=== PATIENT | female | born 1945 | race Caucasian/White ===

== ENCOUNTER 2017-08-18 18:18 | Inpatient (IN) | payer MEDICAID ==
[~2017-08-18] VITALS: Ht 154.9 cm; Wt 70.3 kg
[2017-08-18] MEDS ORDERED: ONDANSETRON HCL 4MG/2ML INJ IV STA (21:39)
[2017-08-18] MEDS ORDERED: MORPHINE SULFATE 4 MG/ML CPJ (NOT FOR IM USE) IV STA (21:39)
[2017-08-18 22:06] LABS: HEMATOCRIT. 37.8 % (36.0-48.0); HEMOGLOBIN. 12.4 g/dL (12.0-16.0); MEAN CORPUSCULAR HEMOGLOBIN 29.1 pg (28.0-32.0); MEAN CORPUSCULAR VOLUME 88.9 fL (81.0-99.0); MEAN PLATELET VOLUME 10.5 fl (7.4-10.4); PLATELET 315 x1000/uL (130-400); RED BLOOD CELL COUNT 4.25 mill/uL (4.2-5.4); RED CELL DISTRIBUTION WIDTH 15.1 % (11.6-14.6)
[2017-08-18 22:11] LABS: INR 1.1
[2017-08-18 22:16] LABS: CHLORIDE 103 mEq/L (98-107)
[2017-08-18 22:17] LABS: CLARITY URINE CLOUDY (CLEAR); COLOR URINE YELLOW (YELLOW); KETONES URINE TRACE (NEGATIVE); LEUKOCYTE ESTERASE URINE 2+ (NEGATIVE); NITRITE URINE POSITIVE (NEGATIVE); OCCULT BLOOD URINE NEGATIVE (NEGATIVE); PH URINE 5.5 (4.5-8.0); PROTEIN URINE NEGATIVE (NEGATIVE); SPECIFIC GRAVITY URINE 1.024 (1.005-1.030)
[2017-08-18 22:37] LABS: PLATELET ESTIMATE NORMAL
[2017-08-18] MEDS ORDERED: CEFTRIAXONE 1 G PREMIX 50 ML IV ONE (22:45)
[2017-08-18] MEDS ORDERED: ASPIRIN 325MG TABLET PO ONE (23:00)
[2017-08-19] MEDS ORDERED: ACETAMINOPHEN 325MG TABLET PO ONE (00:45)
[2017-08-19] MEDS ORDERED: IPRATROPIUM/ALBUTEROL 0.5-3(2.5)MG/3ML NEB INH PRN (01:00)
[2017-08-19] MEDS ORDERED: ONDANSETRON HCL 4MG/2ML INJ IV PRN (01:00)
[2017-08-19] MEDS ORDERED: DOCUSATE SODIUM 100MG CAPSULE PO PRN (01:00)
[2017-08-19] MEDS ORDERED: ACETAMINOPHEN 325MG TABLET PO PRN (01:00)
[2017-08-19] MEDS ORDERED: MAGNESIUM/ALUMINUM HYDROXIDE/SIMETHICONE 30ML UDC PO PRN (01:00)
[2017-08-19] MEDS ORDERED: CLONIDINE 0.1MG TABLET PO PRN (01:00)
[2017-08-19 01:28] LABS: CHLORIDE 104 mEq/L (98-107)
[2017-08-19] MEDS: LEVOFLOXACIN 500MG PREMIX 100 ML IV SCH (01:40)
[2017-08-19 05:49] LABS: HEMATOCRIT. 34.6 % (36.0-48.0); HEMOGLOBIN. 11.3 g/dL (12.0-16.0); MEAN CORPUSCULAR VOLUME 88.7 fL (81.0-99.0); MEAN PLATELET VOLUME 10.4 fl (7.4-10.4); PLATELET 281 x1000/uL (130-400); RED CELL DISTRIBUTION WIDTH 15.2 % (11.6-14.6)
[2017-08-19 06:06] LABS: CREATINE KINASE MB FRACTION 0.8 ng/mL (0.5-3.6)
[2017-08-19 06:11] LABS: CREATINE KINASE 11 IU/L (26-192); HDL CHOLESTEROL 59 mg/dL (40-59); LDL CHOLESTEROL 69 mg/dL (5-100)
[2017-08-19 06:31] LABS: PLATELET ESTIMATE NORMAL
[2017-08-19 08:00] VITALS: BP 118/79
[2017-08-19 09:07] VITALS: BP 118/79
[2017-08-19 10:41] LABS: *AMPHETAMINES SCREEN URINE PRESUMTIVE POSITIVE (NEGATIVE); *BARBITURATES SCREEN URINE NEGATIVE (NEGATIVE); *BENZODIAZEPINES SCREEN URINE NEGATIVE (NEGATIVE); *COCAINE SCREEN URINE NEGATIVE (NEGATIVE); CANNABINOID URINE SCREEN NEGATIVE (NEGATIVE); METHADONE URINE SCREEN NEGATIVE (NEGATIVE); OPIATES URINE SCREEN NEGATIVE (NEGATIVE); PHENCYCLIDINE URINE SCREEN NEGATIVE (NEGATIVE)
[2017-08-19] MEDS: ASPIRIN 81MG EC TABLET PO SCH (10:48)
[2017-08-19] MEDS: ENOXAPARIN 40MG/0.4ML SYR SUBCUT SCH (10:49)
[2017-08-19 12:00] VITALS: BP 111/53
[2017-08-19] MEDS: HYDROCODONE/ACETAMINOPHEN 5/325MG TABLET PO PRN ×2 (13:29→21:01)
[2017-08-19 15:39] LABS: CREATINE KINASE 11 IU/L (26-192)
[2017-08-19 15:40] LABS: CREATINE KINASE MB FRACTION 0.6 ng/mL (0.5-3.6)
[2017-08-19 16:00] VITALS: BP 107/51
[2017-08-19 20:00] VITALS: BP 101/54
[2017-08-19] MEDS: MORPHINE SULFATE 2 MG/ML CPJ (NOT FOR IM USE) IV PRN (21:50)
[2017-08-19] MEDS: CEFTRIAXONE 1 G PREMIX 50 ML IV SCH (23:21)
[2017-08-20] VITALS: BP 92/50
[2017-08-20] MEDS: LEVOFLOXACIN 500MG PREMIX 100 ML IV SCH (00:25)
[2017-08-20 04:00] VITALS: BP 100/52
[2017-08-20 08:00] VITALS: BP 96/44
[2017-08-20] MEDS: ASPIRIN 81MG EC TABLET PO SCH (08:28)
[2017-08-20] MEDS: ENOXAPARIN 40MG/0.4ML SYR SUBCUT SCH (08:28)
[2017-08-20 12:00] VITALS: BP 93/43
[2017-08-20] MEDS: GUAIFENESIN 200MG/10ML SUGAR FREE UDC PO PRN (14:48)
[2017-08-20 16:00] VITALS: BP 110/55
[2017-08-20 20:00] VITALS: BP 104/53
[2017-08-20] MEDS: CEFTRIAXONE 1 G PREMIX 50 ML IV SCH (22:55)
[2017-08-20] MEDS: MORPHINE SULFATE 2 MG/ML CPJ (NOT FOR IM USE) IV PRN (22:59)
[2017-08-21] VITALS (7 sets, daily range): BP systolic 95–117; BP diastolic 48–58
[2017-08-21] MEDS: GUAIFENESIN 200MG/10ML SUGAR FREE UDC PO PRN ×2 (01:58→08:55)
[2017-08-21] MEDS: HYDROCODONE/ACETAMINOPHEN 5/325MG TABLET PO PRN (01:59)
[2017-08-21] MEDS ORDERED: LEVOFLOXACIN 500MG PREMIX 100 ML IV SCH (02:00)
[2017-08-21] MEDS: MORPHINE SULFATE 2 MG/ML CPJ (NOT FOR IM USE) IV PRN ×2 (06:11→13:07)
[2017-08-21] MEDS: ENOXAPARIN 40MG/0.4ML SYR SUBCUT SCH (08:46)
[2017-08-21] MEDS: ASPIRIN 81MG EC TABLET PO SCH (08:46)
[2017-08-21 13:15] LABS: HEMATOCRIT. 33.8 % (36.0-48.0); HEMOGLOBIN. 10.7 g/dL (12.0-16.0); MEAN CORPUSCULAR HEMOGLOBIN 28.2 pg (28.0-32.0); MEAN CORPUSCULAR VOLUME 89.3 fL (81.0-99.0); PLATELET 230 x1000/uL (130-400); RED BLOOD CELL COUNT 3.79 mill/uL (4.2-5.4)
[2017-08-21 13:29] LABS: CHLORIDE 103 mEq/L (98-107)
[2017-08-21 13:36] LABS: PLATELET ESTIMATE NORMAL
== END 2017-08-21 18:23 | disposition home health service (06) | DRG 463 ==
LOC: ER 18:18 → EDBEDREQ 23:00 → ENRESERV 08-19 07:42 → 5WST 08-19 09:25
PROVIDERS: ADMIT Internal Medicine; ATTEND Internal Medicine
DX: N12 Tubulo-interstitial nephritis, not specified as acute or chronic (principal); I24.9 Acute ischemic heart disease, unspecified; F19.10 Other psychoactive substance abuse, uncomplicated; J45.901 Unspecified asthma with (acute) exacerbation; I10 Essential (primary) hypertension; E78.5 Hyperlipidemia, unspecified; Z86.73 Personal history of transient ischemic attack (TIA), and cerebral infarction without residual deficits; Z87.442 Personal history of urinary calculi
CPT/HCPCS: 36415; 71045; 74176; 80048; 80061; 80305; 82550; 82553; 83605; 83735; 83880; 84443; 84484; 87804; 93005; 93306; 93970; 96365; 96375; 99285; J0696; J1650; J1956; J2270; J2405; J7050